=== PATIENT | female | born 1990 | race Caucasian/White ===

== ENCOUNTER 2025-03-23 16:01 | Inpatient (IN) | payer OTHER ==
[~2025-03-23] VITALS: Ht 175.3 cm; Wt 3.2 kg
[2025-03-23 16:22] VITALS: BP 114/72
[2025-03-23] MEDS ORDERED: MISOPROSTOL 25 MCG TABLET ONE (16:38)
[2025-03-23] MEDS ORDERED: SYNTHROID50 MCG PO (16:59)
[2025-03-23] MEDS ORDERED: PRENATAL + DHA1 EAC1 PO (17:00)
[2025-03-23 17:10] LABS: URINE APPEARANCE Clear; URINE BILIRRUBIN Negative (NEGATIVE); URINE BLOOD Negative; URINE COLOR Yellow; URINE GLUCOSE Negative (NEGATIVE); URINE KETONE Negative (NEGATIVE); URINE LEUKOCYTE Trace; URINE NITRATE Negative; URINE PROTEIN Trace (NEGATIVE)
[2025-03-23 17:11] LABS: URINE BACTERIA 313.2 uL (0.0-1933); URINE EPITHELIAL CELLS 24.1 uL (0.0-38.8); URINE RBC 2.9 uL (0.0-20.8); URINE WBC 3.1 uL (0.0-23.2)
[2025-03-23] MEDS ORDERED: RINGERS SOLUTION,LACTATED 1,000 ML IV SCH (17:15)
[2025-03-23] MEDS ORDERED: MISOPROSTOL 25 MCG TABLET VAG ONE (17:15)
[2025-03-23 17:22] LABS: RED BLOOD COUNT 4.03 M/uL (3.93-5.22)
[2025-03-23 17:23] LABS: BASO % 0.3 % (0.1-1.2); EOS % 1.3 % (0.7-7.0); LYMPH % 10.3 % (19.3-53.1); MEAN CORPUSCULAR HEMOGLOBIN 32.3 pg (25.6-32.2); MONO % 10.8 % (4.7-12.5); NEUT % 74.9 % (34.0-71.1); PLATELET COUNT 171 K/uL (163-369); RED CELL DISTRIBUTION WIDTH 14.1 % (11.6-14.4)
[2025-03-23 17:24] LABS: EOS # 0.14 (0.04-0.54); LYMPH # 1.08 (1.18-3.74); MONO # 1.13 (0.24-0.82); NEUT # 7.82 (1.56-6.13)
[2025-03-23 17:34] LABS: INR 0.96; PROTHROMBIN TIME 10.5 SECONDS (9.0-11.5)
[2025-03-23 17:38] LABS: URINE CAST 0.14 uL (0.0-1.40)
[2025-03-23 17:47] LABS: BILIRUBIN TOTAL 0.67 mg/dL (0.3-1.2); CALCIUM 8.9 mg/dL (8.5-10.1); CREATININE SERUM 0.49 mg/dL (0.55-1.02); GFR 145.44; GLOBULINA 3.7 G/DL (2.4-3.5); POTASSIUM 4.04 mEq/L (3.5-5.1); TOTAL PROTEIN 6.7 gm/dL (6.4-8.2)
[2025-03-23 19:02] VITALS: BP 121/67
[2025-03-23 23:15] VITALS: BP 122/69
[2025-03-24 03:39] VITALS: BP 118/61
[2025-03-24] MEDS ORDERED: LEVOTHYROXINE SODIUM 50 MCG TABLET PO SCH (06:00)
[2025-03-24 07:15] VITALS: BP 122/64
[2025-03-24] MEDS ORDERED: OXYTOCIN 20 UNITS/500ML RL PIGGYBAG IV ONE (07:45)
[2025-03-24] MEDS ORDERED: OXYTOCIN 500 ML IV SCH (08:45)
[2025-03-24] MEDS ORDERED: MORPHINE SULFATE 4 MG/ML CARTRIDGE IV PRN ×2 (10:00→20:15)
[2025-03-24 11:26] VITALS: BP 133/63
[2025-03-24 15:30] VITALS: BP 125/59
[2025-03-24] MEDS ORDERED: CEFAZOLIN SODIUM 1,000 MG VIAL IV SCH (18:15)
[2025-03-24] MEDS ORDERED: OXYTOCIN 10 UNITS/ML VIAL ONE (19:49)
[2025-03-24] MEDS ORDERED: ERYTHROMYCIN BASE OPHT 1GM EACH TUBE OP ONE (19:49)
[2025-03-24] MEDS ORDERED: KETOROLAC TROMETHAMINE 30 MG VIAL IV SCH (20:06)
[2025-03-24] MEDS ORDERED: RINGERS SOLUTION,LACTATED 1,000 ML IV SCH (20:15)
[2025-03-24] MEDS ORDERED: OXYTOCIN 1,000 ML IV ONE (20:15)
[2025-03-25] MEDS ORDERED: ACETAMINOPHEN 500 MG GEL..CAP PO SCH
[2025-03-25] MEDS ORDERED: ONDANSETRON HCL 2 MG/ML VIAL IV SCH
[2025-03-25] MEDS ORDERED: GABAPENTIN 300 MG CAPSULE PO SCH (01:00)
[2025-03-25] MEDS ORDERED: SIMETHICONE 125 MG CAPSULE PO SCH (01:00)
[2025-03-25] MEDS ORDERED: MORPHINE SULFATE 4 MG/ML VIAL IV ONE (01:30)
[2025-03-25 02:06] VITALS: BP 95/58
[2025-03-25 06:55] LABS: BASO % 0.2 % (0.1-1.2); HEMOGLOBIN 11.7 g/dL (11.2-15.7); LYMPH # 0.77 (1.18-3.74); LYMPH % 4.2 % (19.3-53.1); MEAN CORPUSCULAR HEMOGLOBIN 32.2 pg (25.6-32.2); MONO # 1.33 (0.24-0.82); MONO % 7.3 % (4.7-12.5); NEUT # 16.04 (1.56-6.13); NEUT % 87.5 % (34.0-71.1); PLATELET COUNT 161 K/uL (163-369); RED BLOOD COUNT 3.63 M/uL (3.93-5.22); RED CELL DISTRIBUTION WIDTH 13.8 % (11.6-14.4)
[2025-03-25] MEDS ORDERED: KETOROLAC TROMETHAMINE 10 MG TABLET PO SCH (08:00)
[2025-03-25] MEDS ORDERED: OxyCODONE HCL 5 MG TABLET (ROXICODONE) PO PRN (08:00)
[2025-03-25 08:15] VITALS: BP 99/60
[2025-03-25] MEDS ORDERED: DOCUSATE SODIUM 100MG CAP PO SCH (09:00)
[2025-03-25 15:52] VITALS: BP 103/60
[2025-03-26 00:49] VITALS: BP 113/66
[2025-03-26 05:00] VITALS: BP 102/66
[2025-03-26 08:47] VITALS: BP 109/70
== END 2025-03-26 14:51 | disposition home or self-care (01) | DRG 788 ==
LOC: LDR 16:01 → O/R 03-24 20:58 → OB/GYN 03-24 21:36
PROVIDERS: Obstetrics & Gynecology; ADMIT Obstetrics & Gynecology; ATTEND Obstetrics & Gynecology
PROC: 4A1HXCZ Monitoring of Products of Conception, Cardiac Rate, External Approach (ICD-10-PCS; 2025-03-23)
PROC: 3E0P7VZ Introduction of Hormone into Female Reproductive, Via Natural or Artificial Opening (ICD-10-PCS; 2025-03-23)
PROC: 3E033VJ Introduction of Other Hormone into Peripheral Vein, Percutaneous Approach (ICD-10-PCS; 2025-03-24)
PROC: 10D00Z1 Extraction of Products of Conception, Low, Open Approach (ICD-10-PCS; principal; 2025-03-24 20:00)
DX: O61.0 Failed medical induction of labor (principal); Z3A.39 39 weeks gestation of pregnancy; Z37.0 Single live birth